=== PATIENT | female | born 1950 | race Caucasian/White ===

== ENCOUNTER 2017-10-24 10:09 | Outpatient (CLI) | payer MEDICARE, BC ==
--- NOTE | 2017-10-24 14:14 | CT ---
CT OF THE THORAX UTILIZING LOW DOSE CANCER SCREENING CT PROTOCOL AND NO IV CONTRAST: COMPARISON: None. INDICATION: A 67-year-old female with a smoking history. FINDINGS: There is some mild scattered centrilobular emphysema. There is a small faint sub-4 mm ground-glass pulmonary nodule within the right lower lobe on image 33 of series 3. Additional sub-4 mm ground-glass pulmonary nodule is seen within the superior segment of the right lower lobe on image 31 of series 3. No additional pulmonary nodule is grossly evident. No suspicious pulmonary nodule is evident. There are coronary artery and thoracic aorta calcifications. No definite enlarged lymph nodes eviden t. Visualized upper abdomen reveals normal-appearing adrenal glands. No definite acute abnormality is n oted. There is scattered degenerative and osteoarthritic change. IMPRESSION: 1. Lung RADS category 2 - benign. Recommend annual low-dose screening evaluation. 2. There are small sub-4 mm ground-glass pulmonary nodules within the superior segment of the right lower lobe. 3. Other chronic findings as above. POS: NURIA
== END 2017-10-24 10:10 | disposition home or self-care (01) ==
LOC: CT 10:09
PROVIDERS: ATTEND Family Medicine
DX: F17.210 Nicotine dependence, cigarettes, uncomplicated (principal); R91.8 Other nonspecific abnormal finding of lung field
CPT/HCPCS: G0297